=== PATIENT | female | born 1965 | race Caucasian/White ===

== ENCOUNTER 2020-12-08 09:25 | Observation (INO) | payer BC ==
[~2020-12-08] VITALS: Ht 157.5 cm; Wt 105.0 kg
[~2020-12-08 09:25] MED LIST: ALL DAY ALLG10 MG OR; BACTRIM DS1 TAB PO; CELEXA10 MG OR; CELEXA20 M1 OR; CIPRO500 MG; ENALAPRIL5 MG OR; LEVOTHYROXIN75 MC1 OR; LORTAB 5 OR; PERCOCET 5/325M1 TAB OR; PREVACID15 M1 OR; UNKNOWN BP PILL; VASOTEC5 MG OR
--- NOTE | 2020-12-08 10:20 | NUR ---
TRIAGE COMPLETED OUTSIDE. PT STABLE AT PRESENT . COVID AND FLU SWABS OBTAINED.
--- NOTE | 2020-12-08 15:10 | NUR ---
FIRST CONTACT WITH PATIENT NOW IN ROOM 8
[2020-12-08 15:24] LABS: HEMOGLOBIN 14.2 g/dl (12.0-16.0); IMMATURE GRANULOCYTES 0.8 % (0.0-5.0); MEAN CELL VOLUME 91.9 fL CALC (80.0-100.0); MEAN CORPUSCULAR HGB 28.9 pG CALC (26.0-32.0); MEAN CORPUSCULAR HGB CONC 31.5 g/dL CAL (32.0-36.0); NEUT# 1.85 thou/uL (2.00-7.15); RED BLOOD COUNT 4.91 mill/uL (4.20-5.60); RED CELL DISTRI WIDTH 13.3 % (11.5-15.5)
[2020-12-08 15:45] LABS: HEMATOCRIT 45.1 % (37.0-47.0)
--- NOTE | 2020-12-08 15:50 | NUR ---
MULTIPLE IV ATTEMPS MADE, CURRENT 22G PLACE WITH 1 ATTEMPT PER T.C., R.N.
[2020-12-08 15:52] LABS: ALBUMIN 3.9 g/dL (3.2-5.0); ALKALINE PHOSPHATASE 102 u/l (38-126); ANION GAP 13 (6-22 (CALC)); BUN 8 mg/dL (7-17); BUN/CREATININE RATIO 15 (12-20 (CALC)); CARBON DIOXIDE 24 mmol/l (22-30); CHLORIDE 105 mmol/l (95-108); CREATININE 0.5 mg/dL (0.5-1.0); GFR > 60 ML/MIN (>=60 (CALC)); GFR FOR AFR.AMER. > 60 ML/MIN (>=60 (CALC)); SODIUM 137 mmol/l (137-146); TOTAL PROTEIN 7.5 g/dL (6.3-8.2)
[2020-12-08 15:53] LABS: BILIRUBIN, TOTAL 0.6 mg/dL (0.0-1.4); SGOT/AST 51 u/l (14-36)
--- NOTE | 2020-12-08 16:35 | NUR ---
DR SHAW BEDSIDE FOR AMUBULATING PATIENT ON ROOM AIR
--- NOTE | 2020-12-08 19:00 | NUR ---
PT. WITH C/O HAVING TESTED + FOR COVID AND FEELING SOB. SKIN WARM AND DRY TO TOUCH, COLOR WNL, RESP. EVEN AND UNLABORED. BILATERAL LUNG GODWIN ARE DEMINISHED. O2 SAT 97-98% ON RA.
--- NOTE | 2020-12-08 20:00 | NUR ---
IN ROOM TO ADVISE PT. SHE WILL BE ADMITTED. VERBALIZED UNDERSTANDING.
--- NOTE | 2020-12-08 21:00 | NUR ---
PT. RESTING QUIETLY EYES CLOSED, NO C/O PAIN OR DISCOMFORT OFFERED, V/S STABLE. ASSESSMENT UNCHANGED.
--- NOTE | 2020-12-08 22:00 | NUR ---
PT. BELJULISSAS PACED FOR ADMISSION, NO C/O V/S ATBLE. O2 SAT 97%.
--- NOTE | 2020-12-08 23:33 | NUR ---
Admission Note Report Given to: IRVING BARNES Transported by: X Wheelchair Stretcher Transported with: X Nurse Transporter X Patent IV O2 Director Of Training Location: ICU X [facility]
--- NOTE | 2020-12-08 23:45 | NUR ---
TAKEN TO [facility] FLOOR VIA W/C, NO C/O.
[2020-12-08 23:50] VITALS: BP 125/68
--- NOTE | 2020-12-09 | NUR ---
PT ARRIVED TO [facility] VIA WC ACCOMPANIED BY ED NURSE. PT APPEARS TO BE IN STABLE CONDITION, SELF AMBULATED TO THE BED. ASSESSMENT COMPLETED AT THIS TIME AND PT ORIENTED TO THE ROOM, CALL SYSTEM, LIGHTS, BED AND TV. V/S ASSESSED, COSMETIC SALES CONSULTANT IN WITH PT AT THIS TIME.
--- NOTE | 2020-12-09 01:50 | NUR ---
PT SLEEPING, NO S/O DISTRESS NOTED. CALL LIGHT AT BEDSIDE.
[2020-12-09 04:00] VITALS: BP 117/67
--- NOTE | 2020-12-09 04:00 | NUR ---
V/S ASSESSED, NO S/O DISTRESS NOTED. CALL LIGHT AT SIDE AND PT ENCOURAGED TO CALL NEEDS ARISE.
[2020-12-09 06:10] LABS: HEMATOCRIT 43.4 % (37.0-47.0); HEMOGLOBIN 13.6 g/dl (12.0-16.0); IMMATURE GRANULOCYTES 0.5 % (0.0-5.0); MEAN CELL VOLUME 93.1 fL CALC (80.0-100.0); MEAN CORPUSCULAR HGB 29.2 pG CALC (26.0-32.0); MEAN CORPUSCULAR HGB CONC 31.3 g/dL CAL (32.0-36.0); NEUT# 1.19 thou/uL (2.00-7.15); RED BLOOD COUNT 4.66 mill/uL (4.20-5.60); RED CELL DISTRI WIDTH 13.1 % (11.5-15.5)
[2020-12-09 06:37] LABS: ALBUMIN 3.7 g/dL (3.2-5.0); ALKALINE PHOSPHATASE 94 u/l (38-126); ANION GAP 14 (6-22 (CALC)); BILIRUBIN, TOTAL 0.4 mg/dL (0.0-1.4); BUN 10 mg/dL (7-17); BUN/CREATININE RATIO 20 (12-20 (CALC)); C-REACTIVE PROTEIN 4.8 mg/dL (0-0.9); CARBON DIOXIDE 25 mmol/l (22-30); CHLORIDE 103 mmol/l (95-108); CREATININE 0.5 mg/dL (0.5-1.0); GFR > 60 ML/MIN (>=60 (CALC)); GFR FOR AFR.AMER. > 60 ML/MIN (>=60 (CALC)); POTASSIUM 4.4 mmol/l (3.5-5.1); SGOT/AST 50 u/l (14-36); SODIUM 138 mmol/l (137-146); TOTAL PROTEIN 7.1 g/dL (6.3-8.2)
[2020-12-09 07:25] VITALS: BP 118/78
--- NOTE | 2020-12-09 07:25 | NUR ---
PATIENT RESTING IN BED AT THIS TIME DENEIS ANY NEEDS CURRENTLY RN ASSESSEMENT DONE SEE INTERVENTIONS. LUNG GODWIN IN LOWER ARE DIMINISHED AND UPPER GODWIN ARE CLEAR. PATINET HAS THEN SECREATIONS WHEN COUGHING AND CLEAR. PATIENT PUPILS ARE UNEQUAL DUE TO HISTORY OF BRAIN TUMOR. PATIENT STATES SHE IS AT HER BASE. SIDERAILS ARE UP CALL LIGHT WITHIN REACH TELE MONITOR ON AND BEING MONITORED BY ED.
--- NOTE | 2020-12-09 10:53 | NUR ---
PATIENT GIVEN INCENTIVE SPIROMETER AND EDCUATED ON USE. PATIENT VERBALIZED UNDERSTANDING OF EDUCATION AND DID DO A RETURN DEMONSTRATION AT THIS TIME. WILL CONTINUE TO MONITOR.
[2020-12-09 10:55] VITALS: BP 112/64
--- NOTE | 2020-12-09 11:47 | NUR ---
PATIENT REMAINS UP IN CHAIR AT THIS TIME. PATIENT DENIES ANY NEEDS AND OR PAIN. DR. ALBRECHT AND TREMAINE DONALDSON ARPN IN AND ROUNDING ON PATIENT. PATIENT 02 REMAINS ON AT 2L AND SPO2 REMAINS AT 95%.. CALL LIGHT WITHIN REACH SIDERAILS ARE UP X2 TELE REMAINS IN PLACE BEING MONITORED BY ED.
[2020-12-09] MEDS ORDERED: LIPITOR40 M1 PO (11:56)
[2020-12-09] MEDS ORDERED: METFORMIN500 M2 PO (11:59)
[2020-12-09] MEDS ORDERED: CELEXA20 M1 PO (11:59)
[2020-12-09] MEDS ORDERED: LEVOTHYROXIN50 MCG PO (12:00)
[2020-12-09 15:08] VITALS: BP 121/62
--- NOTE | 2020-12-09 16:20 | NUR ---
PATIENT SITTING UP IN CHAIR AT THIS TIME. PATIENT REMAINS ON O2 AT 2L AND DENIES ANY SHORTNESS OF BREATH. CALL LIGHT IS WITHIN REACH. TELE MONITOR ON AND BENING MONITORED BY ED.
--- NOTE | 2020-12-09 16:39 | NUR ---
6 MINUTE WALK TEST DONE BY THIS NURSE AND RESULTS ARE NOTED: 02 OFF FOR 30MINUTES AND SPO2 WAS 92%. PATIENT WALKED FOR 5 MINUTES WITHOUT O2 ON AND SPO2 WAS 97%. O2 PLACED BACK ON PATIENT AT 2L AND WALKED AND SPO2 WAS 94%. FINAL RESTING SPO2 IS 93%. ALL RESULTS GIVEN TO TREMAINE VALERIO ORDERS GIVENT TO TAKE O2 OFF PATIENT AND MONITOR PATIENT'S SPO2 AND KEEP AT 92% OR ABOVE.
--- NOTE | 2020-12-09 17:11 | NUR ---
RECHECKED PATIENT SPO2 AFTER 02 TURNED OFF AND AT THIS TIME SPO2 IS 89% PATIENT RETURN BACK ON 1L OF 02 AT THIS TIME.
[2020-12-09 19:00] VITALS: BP 116/62
--- NOTE | 2020-12-09 21:07 | NUR ---
PT MEDICATED ORDERS PROVIDE AND ASSESSMENT COMPLETED AT THIS TIME. PT IS SITTING UP IN THE RECLINER. OXYGEN SAT 94% ON 2LNC NO S/O DISTRESS, PT REPORTS FEELING LESS SOB.
[2020-12-10] VITALS: BP 128/67
--- NOTE | 2020-12-10 01:10 | NUR ---
PT SLEEPING, NO S/O DISTRESS NOTED AT THIS TIME. CALL LIGHT AT BEDSIDE.
--- NOTE | 2020-12-10 02:30 | NUR ---
PT SLEEPING, NO S/O DISTRESS NOTED AT THIS TIME. CALL LIGHT AT SIDE.
[2020-12-10 04:00] VITALS: BP 131/66
[2020-12-10 06:29] LABS: HEMATOCRIT 41.6 % (37.0-47.0); HEMOGLOBIN 12.9 g/dl (12.0-16.0); IMMATURE GRANULOCYTES 0.1 % (0.0-5.0); MEAN CELL VOLUME 93.7 fL CALC (80.0-100.0); MEAN CORPUSCULAR HGB 29.1 pG CALC (26.0-32.0); NEUT# 4.92 thou/uL (2.00-7.15); RED BLOOD COUNT 4.44 mill/uL (4.20-5.60)
[2020-12-10 07:01] LABS: ALBUMIN 3.4 g/dL (3.2-5.0); ALKALINE PHOSPHATASE 78 u/l (38-126); ANION GAP 13 (6-22 (CALC)); BILIRUBIN, TOTAL 0.3 mg/dL (0.0-1.4); BUN 15 mg/dL (7-17); BUN/CREATININE RATIO 26 (12-20 (CALC)); C-REACTIVE PROTEIN 2.8 mg/dL (0-0.9); CARBON DIOXIDE 27 mmol/l (22-30); CHLORIDE 104 mmol/l (95-108); CREATININE 0.6 mg/dL (0.5-1.0); GFR > 60 ML/MIN (>=60 (CALC)); GFR FOR AFR.AMER. > 60 ML/MIN (>=60 (CALC)); POTASSIUM 4.5 mmol/l (3.5-5.1); SGOT/AST 45 u/l (14-36); SODIUM 140 mmol/l (137-146); TOTAL PROTEIN 6.7 g/dL (6.3-8.2)
[2020-12-10 07:34] VITALS: BP 111/56
--- NOTE | 2020-12-10 07:34 | NUR ---
PT IN BED WHEN ENTERED ROOM. PTS VITALS AND ASSESSMENT DONE. PTS COVID +. 2L OF O2. PT ALERT AND ORIENTED. S1 AND S2 HEARD UPON ASCULTATION. BOWELS ACTIVE IN ALL 4 QUADS. LUNGS CLEAR BILATERALLY. SKIN COOL AND DRY. PT PEDAL PULSES BILATERALLY STRONG. PTS IV PATENT AND HEALTHY. PT DENIED PAIN. CALL LIGHT WITHIN REACH.
--- NOTE | 2020-12-10 10:07 | NUR ---
PT IN BED. NO DISTRESS NOTED. NO WANTS AT THIS TIME. CALL LIGHT WITHIN REACH.
--- NOTE | 2020-12-10 10:13 | NUR ---
PT UP OUT OF BED IN CHAIR. NO DISTRESS NOTED. CALL LIGHT WITHIN REACH.
[2020-12-10 11:30] VITALS: BP 120/68
--- NOTE | 2020-12-10 11:34 | NUR ---
DR. HUANG AND Delmy DIAZ AT BEDSIDE DISCUSSING POC.
--- NOTE | 2020-12-10 11:45 | NUR ---
DR. HUANG AND Delmy DIAZ. TITRATED PT OFF OF THE 2L OF OXYGEN PT WAS STATING 94-95.
--- NOTE | 2020-12-10 12:00 | NUR ---
PT SITTING AT CHAIR. NO DISTRESS NOTED. CALL LIGHT WITHIN REACH.
[2020-12-10] MEDS ORDERED: DEXAMETHASON6 MG PO (14:13)
[2020-12-10] MEDS ORDERED: ZITHROMAX250 MG PO (14:14)
[2020-12-10] MEDS ORDERED: ASPIRIN 81 LOW81 MG PO (14:24)
--- NOTE | 2020-12-10 16:00 | NUR ---
PT SITTING UP WAITING FOR RELATIVE TO COME AND GET HER. NO DISTRESS NOTED. CALL LIGHT WITHIN REACH.
--- NOTE | 2020-12-10 16:20 | NUR ---
Discharge instructions given. Patient verbalizes understanding of same. Discharged in stable condition via Wheelchair to Home with staff. All belongings sent with pt.
--- NOTE | 2020-12-15 14:33 | NUR ---
Pneumonia post discharge follow up call completed today, 12/15/20. Pt. states she is still experiencing significant fatigue. No fever, chills or SOB. O2 sats are maintaining in the mid 90s/ Pt. states she began to have diarrhea yesterday. She has a follow up appt. scheduled on 12/20. She is taking prescribed medication without difficulty. Pt. was encouraged to contact PCP if diarrhea persists to avoid dehydration. She states she has Pediolyte in her home and may start drinking this. Pt. requestted an itemized bill for her insurance company. Gave pt. the business office direct line to contact so she can speak to the appropriate guest services representative. No other questions or needs expressed. Appreciative of follow up call.
== END 2020-12-10 16:20 | disposition home or self-care (01) | DRG 177 ==
LOC: ED 09:25 → ED-I 14:23 → ED 14:23 → ED-I 16:38 → ED 17:30 → MS2 17:31 → ED-I 17:31 → MS2 22:21
PROVIDERS: Nurse Practitioner; Physician Assistant Surgical; ADMIT Hospitalist; ATTEND Hospitalist
PROC: XW033E5 Introduction of Remdesivir Anti-infective into Peripheral Vein, Percutaneous Approach, New Technology Group 5 (ICD-10-PCS; principal; 2020-12-09)
DX: U07.1 COVID-19 (principal); J12.82 Pneumonia due to coronavirus disease 2019; R09.02 Hypoxemia; E24.9 Cushing's syndrome, unspecified; Z92.3 Personal history of irradiation
CPT/HCPCS: G0378; J1650